=== PATIENT | male | born 1960 | race Caucasian/White ===

== ENCOUNTER 2021-04-09 09:20 | Outpatient (CLI) | payer OTHER, SELFPAY ==
[2021-04-09 10:52] LABS: Cholesterol 163 mg/dL (0-200); HDL Direct 48 mg/dL; Triglycerides 93 mg/dL (<150)
[2021-04-09 11:02] LABS: LDL Cholesterol Direct 78 mg/dL
== END 2021-04-09 09:21 | disposition home or self-care (01) ==
PROVIDERS: Visit Provider Internal Medicine Cardiovascular Disease
DX: E78.5 Hyperlipidemia, unspecified (principal)
CPT/HCPCS: 36415; 80061

== ENCOUNTER 2022-01-07 12:08 | Outpatient (CLI) | payer OTHER, SELFPAY ==
[2022-01-07 12:29] LABS: Basophils Absolute Auto 0.1 K/mm3 (0.0-0.1); Basophils Percent Auto 1.2 % (0.2-1.2); Eosinophils Absolute Auto 0.6 K/mm3 (0-0.3); Eosinophils Percent Auto 8.6 % (0-4.4); Hemoglobin 15.5 g/dL (14.0-18.0); Immature Granulocyte Absolute 0.01 K/mm3 (0.00-0.031); Immature Granulocyte Percent A 0.1 % (0-0.5); Lymphocytes Absolute Auto 2.85 K/mm3 (0.9-3.2); Lymphocytes Percent Auto 38.5 % (18.3-44.2); Mean Corpuscular HGB Conc 33.7 g/dl (32-36); Mean Corpuscular Hemoglobin 32.5 pg (26-34); Mean Corpuscular Volume 96.4 fl (80-100); Mean Platelet Volume 10.3 fl (7.4-10.4); Monocytes Absolute Auto 0.9 K/mm3 (0.1-0.6); Monocytes Percent Auto 11.5 % (2.6-8.5); Neutrophils Percent Auto 40.1 % (45.5-73.1); Platelet Count Result 219 k/mm3 (150-375); Red Blood Count 4.77 M/mm3 (4.6-6.20); Red Cell Distribution Width 13.2 % (11.5-14.5); White Blood Count 7.4 K/mm3 (4.5-10.0)
[2022-01-07 12:37] LABS: Alanine Aminotransferase 27 U/L (6-50); Albumin Level 4.4 g/dL (3.5-5.1); Alkaline Phosphatase 65 U/L (38-126); Anion Gap 7 mmol/L (8-16); Aspartate Amino Transferase 38 U/L (17-59); Bilirubin,Total 0.6 mg/dL (0.2-1.3); Blood Urea Nitrogen 22 mg/dL (9-20); Calcium 8.9 mg/dL (8.4-10.2); Carbon Dioxide 25 mmol/L (22-30); Chloride 107 mmol/L (98-107); Estimated Glomerular Filt Rate > 60; Glucose 110 mg/dL (65-110); Potassium 4.4 mmol/L (3.4-5.0); Sodium 139 mmol/L (137-145)
[2022-01-07 12:38] LABS: Prothrombin Time 13.1 Seconds (11.1-14.7)
== END 2022-01-07 12:09 | disposition home or self-care (01) ==
LOC: ANHLAB 12:12
PROVIDERS: Visit Provider Nurse Practitioner Adult Health
DX: Z01.810 Encounter for preprocedural cardiovascular examination (principal); I25.10 Atherosclerotic heart disease of native coronary artery without angina pectoris
CPT/HCPCS: 36415; 80053; 85025; 85610

== ENCOUNTER 2022-01-11 01:13 | Day surgery (SDC) | payer OTHER, SELFPAY ==
[2022-01-10 10:27] VITALS: BMI 34.0
[2022-01-11] VITALS (7 sets, daily range): BP systolic 99–136; BP diastolic 64–86; PULSE 45–61; RESP 16–18; TEMP 36.8; O2SAT 94–96; BMI 33.2
[2022-01-11 07:57] LABS: Basophils Absolute Auto 0.1 K/mm3 (0.0-0.1); Basophils Percent Auto 1.3 % (0.2-1.2); Eosinophils Absolute Auto 0.5 K/mm3 (0-0.3); Eosinophils Percent Auto 7.1 % (0-4.4); Hematocrit 46.9 % (42.0-52.0); Hemoglobin 15.9 g/dL (14.0-18.0); Immature Granulocyte Absolute 0.01 K/mm3 (0.00-0.031); Immature Granulocyte Percent A 0.1 % (0-0.5); Lymphocytes Absolute Auto 2.49 K/mm3 (0.9-3.2); Lymphocytes Percent Auto 35.2 % (18.3-44.2); Mean Corpuscular HGB Conc 33.9 g/dl (32-36); Mean Corpuscular Hemoglobin 32.9 pg (26-34); Mean Corpuscular Volume 97.1 fl (80-100); Mean Platelet Volume 10.4 fl (7.4-10.4); Monocytes Absolute Auto 0.9 K/mm3 (0.1-0.6); Monocytes Percent Auto 12.9 % (2.6-8.5); Neutrophils Absolute Auto 3.1 K/mm3 (1.3-6.7); Neutrophils Percent Auto 43.4 % (45.5-73.1); Platelet Count Result 215 k/mm3 (150-375); Red Blood Count 4.83 M/mm3 (4.6-6.20); Red Cell Distribution Width 13.2 % (11.5-14.5); White Blood Count 7.1 K/mm3 (4.5-10.0)
[2022-01-11 08:06] LABS: INR 0.9; Prothrombin Time 12.2 Seconds (11.1-14.7)
[2022-01-11 08:09] LABS: Anion Gap 9 mmol/L (8-16); Blood Urea Nitrogen 20 mg/dL (9-20); Carbon Dioxide 23 mmol/L (22-30); Chloride 108 mmol/L (98-107); Estimated CRCL calculation 109 ml/min; Estimated Glomerular Filt Rate > 60; Glucose 101 mg/dL (65-110); Potassium 4.2 mmol/L (3.4-5.0); Sodium 140 mmol/L (137-145)
--- NOTE | 2022-01-11 08:58 | WPDMODSED ---
Moderate Sedation Note-Pt Data Patient Data Allergies Allergy/AdvReac Type Severity Reaction Status Date / Time No Known Allergies Allergy Verified 01/11/22 07:23 Home Medications Medication Instructions Recorded Confirmed Type atorvastatin 80 mg PO DAILY 01/10/22 01/10/22 History carvedilol 3.125 mg PO BID 01/10/22 01/10/22 History enalapril maleate 5 mg PO DAILY 01/10/22 01/10/22 History evolocumab [Bart Hernandez] 140 mg SUBCUT MO 01/10/22 01/10/22 History ezetimibe 10 mg PO DAILY 01/10/22 01/10/22 History Adult Aspirin EC Low Strength 81 mg PO DAILY 01/11/22 01/11/22 History Current Medications: Active Medications Sodium Chloride (Normal Saline Iv) 500 mls @ 100 mls/hr IV CONT .Q5H [facility] Sedation/Anesthesia: No previous sedation/anesthesia problems (including family history). PMFSH Social History Social History Smoking status: Never smoker Substance use type: does not use Living arrangements: with family Gender identity (if verbalized by the patient): Male Spiritual care concerns: No Mod Sed Physical Exam Physical Exam Pre Procedural Exam: Normal: Airway Hours since solid foods: 10 Hours since liquid intake: 10 Mallampati Classification: class II Internal Medicine - PN: Obj Da Vital Signs Vital Signs: Vital Signs - 24 hr 01/11/22 07:24 Temperature 36.8 C Pulse Rate 52 L Respiratory Rate 17 Blood Pressure 136/86 Pulse Oximetry 95 Meds/Results Medications: Active Medications Generic Name Dose Route Start Last Admin Trade Name Freq PRN Reason Stop Dose Admin Sodium Chloride 500 mls @ 100 mls/hr 01/11/22 07:00 Normal Saline Iv IV CONT .Q5H [facility] Labs CBC & Chem 7: 01/11/22 07:22 01/11/22 07:22 Labs: Laboratory Results - last 24 hr 01/11/22 01/11/22 01/11/22 07:22 07:22 07:22 WBC 7.1 RBC 4.83 Hgb 15.9 Hct 46.9 MCV 97.1 MCH 32.9 MCHC 33.9 RDW 13.2 Plt Count 215 MPV 10.4 Immature Gran % (Auto) 0.1 Neut % (Auto) 43.4 L Lymph % (Auto) 35.2 Payette % (Auto) 12.9 H Eos % (Auto) 7.1 H Baso % (Auto) 1.3 H Lymph # (Auto) 2.49 Payette # (Auto) 0.9 H Eos # (Auto) 0.5 H Baso # (Auto) 0.1 Abs Immat Gran (auto) 0.01 Absolute Neuts (auto) 3.1 Absolute Nucleated RBC 0.0 Nucleated RBC % 0.0 PT 12.2 INR 0.9 Sodium 140 Potassium 4.2 Chloride 108 H Carbon Dioxide 23 Anion Gap 9 BUN 20 Creatinine 0.80 Estim Creat Clear Calc 109 Estimated GFR > 60 Glucose 101 Calcium 9.0 ASA Classification/Sedation ASA Classification/Sedation ASA Class: II Emergent: No Risks: Risks, benefits and alternatives explained and patient/family accepted plan for sedation. Patient re-evaluated immediately prior to sedation.
--- NOTE | 2022-01-11 08:59 | WPDHPUPDATE1 ---
History and Physical Update Update Date/Time: 01/11/22 08:59 History and Physical has been reviewed, including an updated exam of the patient. There are NO changes in the patient's condition. Risks, benefits, and alternatives have been discussed and questions answered. Patient agrees to proceed with procedure.
--- NOTE | 2022-01-11 09:43 | WPDCARDPROC ---
Cardiac Cath Procedure Note Date of procedure:: 01/11/22 Performing physician:: Roberto Ruiz MD Procedure Procedure note:: LEFT HEART CATHETERIZATION AND CORONARY ANGIOGRAM REPORT DATE OF PROCEDURE:01/11/2022 INDICATION FOR PROCEDURE: CAD, history of PCI/ stenting, abnormal MPI BRIEF CLINICAL HISTORY: 61-year-old male with known CAD, history of non ST-elevation KS, status post PCI/ 2.5 x 16 mm, 3.0 x 20 mm everolimus eluting stent placement to proximal -mid LAD, dyslipidemia, GERD. Patient had MPI done on 11/24/2021 which reportedly showed LVEF 49%, large area of infarction in the anterior and anteroseptal galeano with moderate to severe tenzin-infarct ischemia in the anterior and anterolateral galeano. He was brought to the sleep lab technician to re-evaluate coronary anatomy and rule out InStent restenosis. Benefits and risks of the procedure were discussed with the patient in depth, and informed consent was obtained prior to the procedure. Risks of the procedure include but are not limited to vascular complications including groin hematoma, retroperitoneal bleed, vessel perforation; periprocedural KS, cardiac arrhythmias, stroke, contrast induced nephropathy, and . After discussing all the benefits, risks and alternatives, patient was willing to proceed with the procedure. PROCEDURES PERFORMED: 1. Left heart catheterization- Selective left and right coronary angiogram; left ventriculogram and hemodynamic assessment 2. Selective right common femoral angiogram and deployment of Angio-Seal hemostatic device 3. Moderate sedation-CPT code 46133 MODERATE SEDATION: Midazolam 2 mg; fentanyl 50 mcg; Start time 0919 , Stop time 0936 ; Total [id number] time 17 minutes; Delphine Davila RN was trained observer for moderate sedation. ACCESS SITE: Right common femoral artery PROCEDURE NOTE: After obtaining informed consent, patient was brought to catheterization lab and prepped and draped in a usual sterile manner. After local anesthesia with lidocaine, right common femoral artery access was taken with micropuncture needle followed by insertion of a 5 Danish sheath. Selective left and right coronary angiogram was performed using 5 Danish JL4 and JR4 catheters respectively. Orthogonal views were taken. Next, a 5 Danish JR catheter was advanced in the LV cavity and was flushed with normal saline. LV pressure measurement was performed. After this, left ventriculogram was performed using minimal dye. The catheter was flushed again, and gradient across the aortic valve was measured on the pullback of the catheter. Finally, selective right common femoral angiogram was performed followed by successful deployment of Angio-Seal vascular closure device. Patient tolerated procedure well without any immediate procedure related complications. FINDINGS: LEFT MAIN CORONARY: medium caliber vessel, no significant focal stenosis. The vessel bifurcates into LAD and Dominant left circumflex branches. LEFT ANTERIOR DESCENDING ARTERY: the LAD is a medium caliber vessel in the proximal segment with minor plaque. Previously placed stents in the lower part of the proximal segment and mid segment are widely patent without significant lumen loss. The LAD becomes a smaller caliber vessel in the mid -distal segment. Diagonal branch is a medium to large caliber vessel without significant focal stenosis. LEFT CIRCUMFLEX ARTERY: Dominant left circumflex artery, gives rise to small caliber OM1 and OM2 branches, large caliber OM3 and large caliber LPDA without significant focal stenosis. RIGHT CORONARY ARTERY: Small caliber, non dominant vessel, no significant focal stenosis. LEFT VENTRICULOGRAM: Borderline LV systolic function, ejection fraction about 50-55%. LVEDP 17 mmHg. HEMODYNAMIC ASSESSMENT: Opening pressure 95/64 mmHg , closing pressure 127/68 mmHg , LVEDP 17 , no significant gradient across aortic valve on the pullback of pigtail catheter. RIGHT COMMON FEMORAL ARTERY:
--- NOTE | 2022-01-11 12:45 | SUR.PHASEII ---
1045 D: Patient HR decreased to 33bpm during the recovery phase of his Cath. B/P remained stable (see flowsheet for details). A: notified and did come to the bedside to see patient. Pt. also instructed to stop taking his Carvedilol until he see's him in the clinic and at that time he will go over his medications. Given verbal and written instructions for Medications. R: Patient verbalizes understanding of given instruction. Pt heart rate continued to dip down to the low 30's but rebounds quickly to the 50's-60's.
== END 2022-01-11 12:55 | disposition home or self-care (01) ==
PROVIDERS: Visit Provider Internal Medicine Cardiovascular Disease
PROC: 4A023N7 Measurement of Cardiac Sampling and Pressure, Left Heart, Percutaneous Approach (ICD-10-PCS; CPT 93452; principal; 2022-01-11 08:30)
DX: R94.39 Abnormal result of other cardiovascular function study (principal); I25.10 Atherosclerotic heart disease of native coronary artery without angina pectoris; I25.2 Old myocardial infarction; E78.5 Hyperlipidemia, unspecified; K21.9 Gastro-esophageal reflux disease without esophagitis; Z95.5 Presence of coronary angioplasty implant and graft
CPT/HCPCS: 36415; 80048; 80053; 85025; 85610; 93458; C1760; C1887; C1894; G0269; J1644; J2250; J3010; J7040

== ENCOUNTER 2025-04-02 18:14 | Emergency (ER) | payer OTHER, SELFPAY ==
--- NOTE | ~2025-04-02 | XR_ITS ---
HISTORY: lawnmower injury, large laceration plantar surface COMPARISON: None TECHNIQUE: 3 views of the right foot were performed FINDINGS: Acute displaced and comminuted fracture of the medial base of the proximal phalanx of the great toe i s identified. This fracture extends to and includes the articular surface. The middle and distal phalanx of the second toe is not visualized, presumably absent. Significant soft tissue swelling along the forefoot. No additional fracture deformities are appreciated. IMPRESSION: Acute displaced and comminuted fracture of the medial base of the proximal phalanx of th e great toe extending into and including the articular surface. Absence of the middle and distal phalanx of the second toe Reviewed, dictated and finalized at location A. IMPRESSION: Acute displaced and comminuted fracture of the medial base of the proximal phalanx of the great toe extending into and including the articular bartholomew rface. Absence of the middle and distal phalanx of the second toe
--- OUTSIDE RECORDS SUMMARY | 2025-04-02 18:16 | XMS_ITS | Encounter Summary ---
Author Organization [facility] Healthcare Address [address] [place] [address] Care Team Providers Care Jewelry Drill Operator Name Role Phone Ky Ponce MD Primary Care Provider [phone] Encounter Details Date Type Department Care Team (Late st Contact Info) Description 03/31/2025 Telephone [facility] Medical Group Cardiology [address] [place] [address] Roberto Ruiz MD [address] [facility] [address] [facility] [address] [facility] [address] [place] [address] Social History Tobacco Use Types Packs/Day Years Used Date Smoking Tobacco: Never Smokeless Tobacco: Never Alcohol Use Standard Drinks/Week Comments Yes 3 (1 standard drink = 0.6 oz pur e alcohol) Sex and Gender Information Value Date Recorded Sex Assigned at Not on file 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 Jamil Maher office requesting most recent EKG report and tracing be faxed to their office. Thank you. Contact: documented in this encounter Plan of Treatment Not on file documented as of this encounter Visit Diagnoses Not on filedocumented in this encounter Care Teams Jewelry Drill Operator Relationship Specialty [place] [address] [place] [address] PCP - General Family Medicine 06/21/17 documented as of this encounter
--- OUTSIDE RECORDS SUMMARY | 2025-04-02 18:16 | XMS_ITS | Clinical Summary ---
Author Organization [facility] Address [address] [place] [address] Care Team Providers Care Coal Briquette Machine Operator Name Role Phone None, Provider Primary Care Provider Unavaila ble Encounters Date Type Department Care Team Description 03/31/2025 Prep for Procedure [facility] [address] [place], [place] [address] [address] Jamil Maher DO from Last 3 Months Social History Tobacco Use Types Packs/Day Years Used Date Smoking Tobacco: Never Assessed Sex and Gender Information Value Date Recorded Sex Assigned at Not on file Legal Sex Male 1:16 PM CDT Gender Identity Not on file Sexual Orientation Not on file Plan of Treatment Upcoming Encounters Date Type Department Care Team (Latest Contact Info) Description 04/04/2025 1:00 PM CDT Appointment [facility] [address] [place], [place] [address] [address] Jamil Maher DO [address] [place] [phone] 04/15/2025 7:30 AM CDT Hospital En[facility] [place] [address] Jamil Maher DO [address] [place] [phone] 04/15/2025 7:30 AM CDT Anesthesia Event [facility] [place] [address] [place] [id number] Jorge Luis Stone MD [address] [facility] [place] [address] 04/15/2025 7:30 AM CDT - 04/15/2025 9:10 AM CDT [facility] [place] [address] [place] [address] Jamil Maher DO [address] [place] [phone] RIGHT TOTAL HIP ARTHROPLASTY WITH PROCEDURE NEEDED Scheduled Procedures Name Priority Associated Diagnoses Date/Ti me ARTHROPLASTY HIP TOTAL RIGHT HIP OSTEOARTHRITIS 04/15/2025 7:30 AM CDT Health Maintenance Due Date Last Done Comments Colorectal Cancer Screening Colonoscopy (10 Years) 1960 Annual Physical 12/21/1963 Hepatitis C 1978 DTaP, Tdap and Td Vaccines ( 1 - Tdap) 12/21/1979 Pneumococcal Vaccine: 50+ Ye ars (1 of 1 - PCV) 2010 Zoster Vaccines (1 of 2) 2010 COVID-19 Vaccine ( - 2023-2 5 season) 2024 RSV Immunization or 60+ Years (1 - 1-dose 75+ series) 12/21/2035 Meningococcal B Vaccine Aged Out No l onger eligible based on patient's age to complete this topic Meningococcal Vaccine Aged Out No itzel haresh eligible based on patient's age to complete this topic RSV Immunizations Under 20 Months Aged Out No longer eligible based on patient's age to complete this topic Goals Goal Patient Goal Type Associated Problems Recent Progress Patient-Stated? Author Autogenerat ed Goal Care Plan Autogenerated Problem No Sorne Reveles MA Additional Health Concerns Active Problems Noted Date Diagnosed Date Autogenerated Problem 02/03/2025 Insurance [facility] Care Teams Coal Briquette Machine Operator Relationship Specialty Start Date End Date None, Provider, MD PCP - General UNKNOWN PHYSICIAN SPECIALTY 12/09/24
--- OUTSIDE RECORDS SUMMARY | 2025-04-02 18:16 | XMS_ITS | Clinical Summary ---
Author Organization [facility] [address] [address] [place] [address] [address] [place] [address] Care Team Providers Care Outdoor Fitness Trainer Name Role Phone Ky Ponce MD Primary Care Provider [phone] Allergies No known active allergies Medications aspirin 81 mg tablet take 1 tablet by oral route every day 0 0 06/15/20 15 Active atorvastatin (LIPITOR) 40 mg tabletIndications :Hyperlipidemia, unspecified hyperlipidemia type Take 1 tablet (40 mg total) by mouth nightly 90 tablet 3 03/02/20 22 Active Repatha SureClick 140 mg/mL pen injector ADMINISTER 1 ML(140 MG) UNDER THE SKIN EVERY 14 DAYS 2 mL 2 02/18/20 25 Active enalapril (VASOTEC) 5 mg tablet TAKE 1 TABLET(5 MG) BY MOUTH DAILY 90 tablet 1 03/24/20 25 Active enalapril (VASOTEC) 5 mg tablet TAKE 1 TABLET(5 MG) BY MOUTH DAILY 90 tablet 1 09/26/19 25 2024 Discontinued Active Problems No known active problems Encounters Date Type Department Care Team Description 03/31/2025 Telephone [facility] Medical [facility] Cardiology [address] [place] [address] [address] [place] [address] Roberto Ruiz MD 03/13/2025 8:30 AM CDT Office Visit [facility] Medical [facility] Cardiology [address] [facility] [address] [place] [address] Rosmery Valdez NP Coronary artery disease involving [place] coronary artery of [place] heart without angina pectoris (Primary Dx); Preoperative cardiovascular examination 02/20/2025 Telephone [facility] Cardiology [address] [place] [phone] Marquita Knight MA 02/19/2025 Telephone [facility] Cardiology [address] [facility] [address] [place] [address] Marquita Knight MA 01/03/2025 Telephone [facility] Cardiology [address] [facility] [address] [place] [address] Roberto Ruiz MD from Last 3 Months Medical History Medical History Date Comments Acute non-ST elevation myoca rdial infarction (NSTEMI) (HCC) Acute non-ST segment elevati on myocardial infarcti Hx Other Medical toe injury, fac ial bone fracture due to sports rel Family History Medical History Relation Name Comments Hypertension Father Hypertension; Relation Name Status Comments Father Social History Tobacco Use Types Packs/Day Years Used Date Smoking Tobacco: Never Smokeless Tobacco: Never Tobacco Cessation:Counseling Given: Not Answered Alcohol Use Standard Drinks/Week Comments Yes 3 (1 standard drink = 0.6 oz pur e alcohol) Sex and Gender Information Value Date Recorded Sex Assigned at Not on file 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 Gender Identity Not on file Sexual Orientation Not on file Obstetrics History Last Filed Vital Signs Vital Sign Reading Time Taken Comments Blood Pressure 122/70 03/13/2025 8:19 AM CDT Pulse 67 03/13/2025 8:19 AM CDT Temperature - - Respiratory Rate - - Oxygen Saturation 98% 03/13/2025 8:19 AM CDT Inhaled Oxygen Concentration - - Weight 110.7 kg (244 lb) 03/13/2025 8:19 AM CDT Height 182.9 cm (6') 03/13/2025 8:19 AM CDT Body Mass Index 33.09 03/13/2025 8:19 AM CDT Plan of Treatment Health Maintenance Due Date Last Done Comments Colon Cancer Screening-Colonoscopy 1960 Depression Screening 1960 Hepatitis C Screening 1960 Prostate Cancer Screening-PSA 1960 DTaP/Tdap/Td Vaccine (1 - Tdap) 12/21/1971 Hepatitis B Screening 1978 Regular Well Visit/Exam 18-64 1978 Zoster Vaccine (1 of 2) 2010 Influenza Vaccine (#1) 2025 06/03/2019 Pneumococcal vaccine <65 Aged Out No longer eligible based on patient's age to complete this topic Procedures Procedure Name Priority Date/Time Associated Diagnosis Comments ECG 12-LEAD Routine 03/13/2025 8:42 AM CDT Preoperative cardiovascular examination from Last 3 Months Results * ECG 12 lead (03/13/2025 8:42 AM CDT) 03/13/2025 8:42 AM CDT Rosmery Valdez NP ECG ORDERABLES Final Res ult from Last 3 Months Insurance [facility] Care Teams Outdoor Fitness Trainer Relationship Specialty [place] [address] [place] [address] PCP - General Family Medicine 06/21/17
[2025-04-02 18:20] VITALS: BP 155/70; PULSE 102; RESP 20; TEMP 37.1; O2SAT 99
--- NOTE | 2025-04-02 18:27 | ED_ITS ---
HPI - Wound/Laceration General Chief Complaint: Wound/Laceration <Tiburcio Mora APRN - Last Filed: 04/02/25 18:32> Stated Complaint: foot laceration, great toe injury <Tiburcio Mora APRN - Last Filed: 04/02/25 18:32> Time Seen by Provider: 04/02/25 18:50 <Tiburcio Mora APRN - Last Filed: 04/02/25 18:32> Focused HPI: 64-year-old male presents to the ER complaining of laceration to right foot. Patient was on his riding lawnmower when he was mowing near a culvert was losing controls lumbar in the safety 1 up in his foot went into the lower blade lacerated his right foot. Patient said injury occurred approximately 1 hour ago. Patient drove himself here from our away for further evaluation. Patient reports mild bleeding but is controlled pressure. Patient denies any peripheral vascular disease or diabetes the says he has a history of cardiac stents. Patient says he can feels toes and move his toes. 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 Patient's tetanus is not up-to-date. GENERAL: Well-appearing, well-nourished, and in no acute distress. HEAD: Normocephalic, atraumatic. CHEST: Clear to auscultation. ?No respiratory distress. HEART: Regular rate and rhythm.? NEURO: ?Alert and oriented x3. MSK: RIght Foot: Large laceration to plantar surface the medial foot. Right pedal pulse 2 +and palpable. Patient is able to wiggle his toes. Previous amputation to 2nd toe. Patient patient cannot feel examiner palpate his toes. Capillary refill less than 2 seconds. Neurovascular status intact distal to the injury. Normal dorsiflexion and plantar flexion. Patient screened in triage and initial orders placed.? ?Additional care and disposition to be based upon?diagnostic testing and treatment. <Tiburcio Mora APRN - Last Filed: 04/02/25 18:32> Related Data Home Medications: Home Medications ?Medication ?Instructions ?Recorded ?Confirmed ?Last Taken ?Type enalapril maleate 5 mg tablet 5 mg PO DAILY 01/10/22 03/27/25 01/11/22 History aspirin 81 mg tablet,delayed 81 mg PO DAILY 03/27/25 03/27/25 Unknown History release (Adult Aspirin Regimen) atorvastatin 40 mg tablet (Lipitor) 40 mg PO QHS 03/27/25 03/27/25 Unknown History evolocumab 140 mg/mL subcutaneous 140 mg subcut .COMPLEX 03/27/25 03/27/25 Unknown History pen injector (Repneeraja David) <Tiburcio Mora APRN - Last Filed: 04/02/25 18:32> Allergies/Adverse Reactions: Allergies Allergy/AdvReac Type Severity Reaction Status Date / Time No Known Allergies Allergy Verified 04/02/25 18:29 <Tiburcio Mora APRN - Last Filed: 04/02/25 18:32> [facility] Social History Social History: Social History Smoking status: Never smoker Substance use type: does not use Living arrangements: with family Gender identity (if verbalized by the patient): Male Spiritual care concerns: No <Tiburcio Mora APRN - Last Filed: 04/02/25 18:32> Exam Narrative: APPEARANCE: No apparent distress. Head: atraumatic. EYES: EOMI, NOSE: Atraumatic NECK: Trachea midline RESPIRATORY: No increased rate of breathing CARDIOVASCULAR: RRR, ABDOMINAL: Non-distended MUSCULOSKELETAl: Focal exam of the right foot reveals significant soft tissue injury with exposed bone to the medial forefoot. Significant contamination of grass and dirt. Cap refill <2 sec. Pulses intact. NEURO: Alert. Moving 4/4 extremities SKIN:: Warm, dry. Normal color PSYCHIATRIC: Normal affect <Danish Francois MD - Last Filed: 04/02/25 19:09> Course Vital Signs Vital signs: Vital Signs Temperature 98.7 F 04/02/25 18:20 Pulse Rate 102 H 04/02/25 18:20 Respiratory Rate 20 04/02/25 18:20 Blood Pressure 155/70 H 04/02/25 18:20 Pulse Oximetry 99 04/02/25 18:20 Oxygen Delivery Room Air 04/02/25 18:20 Temperature 98.7 F 04/02/25 18:20 Pulse Rate 102 H 04/02/25 18:20 Respiratory Rate 20 04/02/25 18:20 Blood Pressure 155/70 H 04/02/25 18:20 Pulse Oximetry 99 04/02/25 18:20 Oxygen Delivery Room Air 04/02/25 18:20 <Tiburcio Mora APRN - Last Filed: 04/02/25 18:32> Vital Signs Temperature 98.7 F 04/02/25 18:20 Pulse Rate 102 H 04/02/25 18:20 Respiratory Rate 20 04/02/25 18:20 Blood Pressure 155/70 H 04/02/25 18:20 Pulse Oximetry 99 04/02/25 18:20 Oxygen Delivery Room Air 04/02/25 18:20 Temperature 98.7 F 04/02/25 18:20 Pulse Rate 102 H 04/02/25 18:20 Respiratory Rate 20 04/02/25 18:20 Blood Pressure 155/70 H 04/02/25 18:20 Pulse Oximetry 99 04/02/25 18:20 Oxygen Delivery Room Air 04/02/25 18:20 <Danish Francois MD - Last Filed: 04/02/25 19:09> MDM - Wound/Laceration MDM Narrative Medical decision making narrative: -Course: 64-year-old male presenting with a injury to his right foot involving a long more. Patient has significant soft tissue injury exposed bone. X-ray shows fracture of the 1st proximal phalanx. Patient given Tdap pain control. Given ceftriaxone and vancomycin for contaminated open wound. Patient be transferred to [facility] for further management. Accepted by Dr. Mitchell. <Danish Francois MD - Last Filed: 04/02/25 19:09> Discharge Plan Discharge Clinical Impression: Foot trauma <Tiburcio Mora APRN - Last Filed: 04/02/25 18:32> Patient Disposition: Acute Care Hospital <Tiburcio Mora APRN - Last Filed: 04/02/25 18:32> Condition: Guarded Prognosis <Tiburcio Mora APRN - Last Filed: 04/02/25 18:32> Additional Instructions: Please report immediately to the [facility] emergency department for trauma evaluation of your foot. <Tiburcio Mora APRN - Last Filed: 04/02/25 18:32> Patient Language: Citizen Of [place] <Tiburcio Mora APRN - Last Filed: 04/02/25 18:32> Prescriptions: No Action aspirin [Adult Aspirin Regimen] 81 mg tablet,delayed release (DR/EC) 81 mg PO DAILY atorvastatin [Lipitor] 40 mg tablet 40 mg PO QHS enalapril maleate 5 mg tablet 5 mg PO DAILY Repatha SureClick 140 mg/mL pen injector 140 mg SUBCUT .COMPLEX Rx Instructions: 140 mg subcutaneously every 14 days; twice monthly <Tiburcio Mora APRN - Last Filed: 04/02/25 18:32> Follow-up/Referrals: Cara Mo APRN [Primary Care Provider] - <Tiburcio Mora APRN - Last Filed: 04/02/25 18:32>
[2025-04-02] MEDS: TETANUS,DIPHTHERIA,AC PERTUSSIS ADULT (0.5 ML) BOOSTRIX IM (18:44)
--- OUTSIDE RECORDS SUMMARY | 2025-04-02 19:33 | XMS_ITS | Encounter Summary ---
Author Organization [facility] Healthcare Address [address] [place] [address] Care Team Providers Care Mixing Picker Tender Name Role Phone Ky Ponce MD Primary Care Provider [phone] Encounter Details Date Type Department Care Team (Late st Contact Info) Description 03/31/2025 Telephone [facility] Cardiology [address] [place] [address] Roberto Ruiz MD [address] [address] [facility] [address] [facility], [facility] [address] [place] [address] Social History Tobacco Use Types Packs/Day Years Used Date Smoking Tobacco: Never Smokeless Tobacco: Never Alcohol Use Standard Drinks/Week Comments Yes 3 (1 standard drink = 0.6 oz pur e alcohol) Sex and Gender Information Value Date Recorded Sex Assigned at Not on file 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 Jamil Maher office requesting most recent EKG report and tracing be faxed to their office. Thank you. Contact: documented in this encounter Plan of Treatment Not on file documented as of this encounter Visit Diagnoses Not on filedocumented in this encounter Care Teams Mixing Picker Tender Relationship Specialty [place] [address] [place] [address] PCP - General Family Medicine 06/21/17 documented as of this encounter
--- OUTSIDE RECORDS SUMMARY | 2025-04-02 19:33 | XMS_ITS | Clinical Summary ---
Author Organization [facility] [address] [place] [address] [place] [address] [address] [place] [address] Care Team Providers Care Floral Assistant Name Role Phone Ky Ponce MD Primary Care Provider [phone] Allergies No known active allergies Medications aspirin [...] Encounters Date Type Department Care Team Description 04/02/2025 Emergency [facility] Emergency Department [address] [place] [address] 03/31/2025 Telephone [facility] Cardiology [address] [facility] [address] [place] [address] Roberto Ruiz MD 03/13/2025 8:30 AM CDT Office Visit [facility] Cardiology [address] [facility] [address] [place] [address] Rosmery Valdez NP Coronary artery disease involving andreafski coronary artery of andreafski heart without angina pectoris (Primary Dx); Preoperative cardiovascular examination 02/20/2025 Telephone [facility] Cardiology [address] [place] [address] Marquita Knight MA 02/19/2025 Telephone [facility] Cardiology [address] [place] [address] Marquita Knight, LANDON 01/03/2025 Telephone [facility] Cardiology [address] [place] [address] Roberto Ruiz MD from Last [...] on file 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
--- OUTSIDE RECORDS SUMMARY | 2025-04-02 19:33 | XMS_ITS | Encounter Summary ---
Author Organization [facility] Healthcare Address [address] [place] [address] Care Team Providers Care Full Time Name Role Phone Ky Ponce MD Primary Care Provider [phone] Encounter Details Date Type Department Care Team (Late st Contact Info) Description 04/02/2025 Emergency [facility] Emergency Department [address] [place] [address] Social History Tobacco Use Types Packs/Day Years Used Date Smoking Tobacco: Never Smokeless Tobacco: Never Alcohol Use Standard Drinks/Week Comments Yes 3 (1 standard drink = 0.6 oz pur e alcohol) Sex and Gender Information Value Date Recorded Sex Assigned at Not on file 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 Pt ran over foot with pad hand and OSH found large laceration over medial aspect of R foot with bone exposure and R great toe distal phalanx openfx. PMS intact. Accepted as a level 3 by [facility] Elizabeth RN documented in this encounter Plan of Treatment Not on file documented as of this encounter Visit Diagnoses Not on filedocumented in this encounter Care Teams Full Time Relationship Specialty [place] [address] [place] [address] PCP - General Family Medicine 06/21/17 documented as of this encounter
[2025-04-02] MEDS: cefTRIAXone 2 GM in SODIUM CHLORIDE 0.9% IV 100 ML 200 ML IVPB (19:37)
== END 2025-04-02 20:25 | disposition short-term general hospital (02) ==
LOC: ANHED 19:30
PROVIDERS: Emergency Provider Emergency Medicine; PCP Nurse Practitioner Family
DX: S92.411B Displaced fracture of proximal phalanx of right great toe, initial encounter for open fracture (principal); Z23 Encounter for immunization; Z89.421 Acquired absence of other right toe(s); W28.XXXA Contact with powered lawn mower, initial encounter
CPT/HCPCS: 73630; 90471; 90715; 96365; 99285; J0696